=== PATIENT | male | born 1950 | race Caucasian/White ===

== ENCOUNTER 2024-08-08 00:13 | Emergency (ER) | payer MEDICARE, OTHER, SELFPAY ==
[2024-08-08 00:17] VITALS: BP 179/115
--- NOTE | 2024-08-08 00:39 | ED.GENMED ---
History of Present Illness
General
Chief Complaint: Male Genito-Urinary Symptoms
Source: patient and spouse
Exam Limitations: none
Time Seen by Provider: 08/08/24 00:32
History of Present Illness
History of Present Illness:
Patient with a routine colonoscopy earlier today. Since then has been unable to urinate. Has an enlarged prostate but has never had urinary retention. Some low abdominal pressure. No fever or chills.
Past History
Past History
ED Past Medical History: HTN, Hypercholesterolemia and Other (Prostatic hypertrophy)
Social History
Tobacco: Non-smoker
Alcohol: None
Family History
Family History: Hypertension
Phy Exam
Physical Exam
Physical Exam:
GENERAL: Alert and oriented in no apparent distress
EYE: Orbits normal.
CARDIAC: Regular rate and rhythm without any obvious murmurs.
LUNGS: Clear breath sounds,normal
ABDOMEN: Soft, suprapubic fullness and distention. No rebound or guarding no mass or hernia
NEUROLOGICAL: Alert and oriented , grossly non-focal
SKIN: Warm and dry
PSYCH: Normal and appropriate interaction.
Course
Orders/Labs/Results
Orders:
Orders
08/08/24 00:55
Urinalysis Reflex To Culture Urgent
Date Specimen was Collected: 08/08/24
Time Specimen was Collected: 00:52
Comment: urgency, retention
Urine Microscopic Reflex Cult Urgent
Abnormal Lab Results
08/08/24
00:55
Ur Occult Blood Reflex Trace A
(Negative)
Urine RBC 16-20 A /HPF
(0-2)
Urine Bacteria (Reflex) Few A
(Negative)
Vital Signs
Initial and Last Documented VS:
Initial Vital Signs
Temp Pulse Resp BP Pulse Ox
98.7 F 103 20 179/115 95
08/08/24 00:17 08/08/24 00:17 08/08/24 00:17 08/08/24 00:17 08/08/24 00:17
Last Documented Vital Signs
Temp Pulse Resp BP Pulse Ox
98.7 F 103 20 169/95 96
08/08/24 00:17 08/08/24 00:17 08/08/24 00:17 08/08/24 00:42 08/08/24 00:45
MDM/Problems Addressed
Differential Diagnosis Includes:
Urinary retention status post colonoscopy with a history of prostatic hypertrophy. Bladder scan catheterization and we will have a discussion whether to leave the catheter in or not.
*Pulse Oximetry
Patient hypoxic: no
*Critical Care Note
Total Time (30-74mins, 75-104mins- exclusive of procedures): Not Applicable
Update Note
Update Note:
Difficult to place the Ch catheter per the RN. Approximately 1500 cc. Because of the amount of distention and difficulty placing the catheter will be left in for neurologic follow-up
ED Attending Note
-
Portions of this chart may have been created with voice recognition software.� Occasional wrong word or��sound alike� substitutions may have occurred due to the inherent limitations of voice recognition software.
Discharge Plan
Departure
Patient Disposition: Home (Routine Discharge)
Date of Disposition: 08/08/24
Time of Disposition: 01:41
Patient with high blood pressure during this ER visit?: Yes
Discharge Problem:
Urinary retention, History of prostatic hypertrophy
Instructions: How to Care for Your Ch Catheter, Male, Urinary Retention (DC), BLOOD PRESSURE
Referrals:
Bob Londono MD [Active] -
UNKNOWN - PT NOT,INTERVIEWE [Family Provider] -
Activity Restrictions/Additional Instructions:
Call the urologist in the morning for follow-up
Interventions
Interventions:
*Risk Screen - Suicide Last Done: 08/08/24 00:17
*General Assessment Last Done: 08/08/24 00:43
*Neglect/Abuse Screening Last Done: 08/08/24 00:17
ED- Fall Risk Assessment Last Done: 08/08/24 00:43
*ED COVID-19 Vaccine History Last Done: 08/08/24 00:17
ED-Male Genitourinary Assessment Last Done: 08/08/24 00:43
Discharge Date and Time
Print Language: E[employer]IAL [employer]INE[employer]
[2024-08-08 00:42] VITALS: BP 169/95; BMI 39.3
[2024-08-08 01:12] LABS: Urine Albumin Trace (Neg - Trace); Urine Bilirubin Negative (Negative); Urine Character Clear (Clear); Urine Color Yellow; Urine Glucose Negative (Negative); Urine Ketone Negative (Negative); Urine Leukocyte Negative (Negative); Urine Nitrite Negative (Negative); Urine Occult Blood Trace (Negative); Urine Specific Gravity 1.005 (<1.030); Urine Urobilinogen Negative (Neg - 1+)
[2024-08-08 01:33] LABS: Urine Amorphous Seen; Urine Bacteria Few (Negative); Urine Red Blood Cell 16-20 /HPF (0-2); Urine White Cell 0-2 /HPF (0-5)
== END 2024-08-08 02:02 | disposition home or self-care (01) ==
LOC: EMR 00:13
PROVIDERS: EMERGENCY PHYSICIAN Emergency Medicine
DX: R33.9 Retention of urine, unspecified (principal); N40.0 Benign prostatic hyperplasia without lower urinary tract symptoms; I10 Essential (primary) hypertension; E78.00 Pure hypercholesterolemia, unspecified; Z82.49 Family history of ischemic heart disease and other diseases of the circulatory system
CPT/HCPCS: 99282; 51702; 81003; 81015